=== PATIENT | female | born 1965 | race Caucasian/White ===

== ENCOUNTER 2023-04-01 14:41 | Inpatient (IN) | payer OTHER ==
[2023-04-01 15:47] VITALS: BMI 31.2
[2023-04-01] MEDS ORDERED: BENZOCAINE/MENTHOL (CHLORASEPTIC ) LOZENGE MM PRN (19:20)
[2023-04-01] MEDS ORDERED: MAG HYDROX/AL HYDROX/SIMETH 30 ML UNIT-DOSE CUP PO PRN (19:20)
[2023-04-01] MEDS ORDERED: ONDANSETRON *ODT* 4 MG TABLET SL PRN (19:20)
[2023-04-01] MEDS ORDERED: LOPERAMIDE HCL 2 MG CAPSULE PO PRN (19:20)
[2023-04-01] MEDS ORDERED: diazePAM 5 MG TABLET PO PRN (19:20)
[2023-04-01] MEDS ORDERED: BISMUTH SUBSALICYLATE 524 MG/30 ML PO PRN (19:20)
[2023-04-01] MEDS ORDERED: NICOTINE POLACRILEX 2 MG GUM BUC PRN (19:20)
[2023-04-01] MEDS ORDERED: POLYETHYLENE GLYCOL (HEALTHYLAX) 3350 17 GM PACKET PO PRN (19:20)
[2023-04-01] MEDS ORDERED: IBUPROFEN 400 MG TABLET (FP) PO PRN (19:20)
[2023-04-01] MEDS ORDERED: guaiFENesin 600 MG TABLET.ER (FP) PO PRN (19:20)
[2023-04-01] MEDS ORDERED: NALOXONE HCL (KLOXXADO) 8 MG SPRAY NS PRN (19:20)
[2023-04-01] MEDS ORDERED: NALOXONE HCL 0.4 MG/ML VIAL IM PRN (19:20)
[2023-04-01] MEDS ORDERED: IBUPROFEN 600 MG TABLET (FP) PO PRN (19:20)
[2023-04-01] MEDS ORDERED: DICYCLOMINE HCL 10 MG CAPSULE PO PRN (19:20)
[2023-04-01] MEDS ORDERED: MAGNESIUM HYDROX 2400MG/30ML ORAL SUSPENSION 30 ML CUP PO PRN (19:20)
[2023-04-01] MEDS ORDERED: BENZONATATE 200 MG CAPSULE PO PRN (19:20)
[2023-04-01] MEDS ORDERED: cloNIDine HCL 0.1 MG TABLET PO ONE (19:41)
[2023-04-01] MEDS ORDERED: diazePAM 5 MG TABLET PO ONE (19:42)
[2023-04-01] MEDS: MELATONIN 5 MG TABLETS PO SCH (22:18)
[2023-04-01] MEDS: THIAMINE HCL 100 MG TABLET (FP) PO SCH (22:18)
[2023-04-01] MEDS: diazePAM 5 MG TABLET PO SCH (22:18)
[2023-04-02] MEDS: diazePAM 5 MG TABLET PO SCH ×4 (05:46→22:25)
[2023-04-02] MEDS: METHOCARBAMOL 500 MG TABLET PO PRN (06:01)
[2023-04-02] MEDS: hydrOXYzine PAMOATE 25 MG CAPSULE (FP) PO PRN ×2 (06:01→10:20)
[2023-04-02] MEDS ORDERED: ALBUTEROL SO4 HFA INHALER IH PRN ×2 (08:50→13:21)
[2023-04-02] MEDS ORDERED: cloNIDine HCL 0.1 MG TABLET PO PRN (08:51)
[2023-04-02] MEDS ORDERED: methaDONE HCL 10 MG TABLET PO SCH (09:00)
[2023-04-02] MEDS: PRENATAL VITAMINS W/ FOLIC ACID TABLET (FP) PO SCH (10:20)
[2023-04-02 11:57] LABS: POTASSIUM 4.6 mmol/L (3.5-5.1)
[2023-04-02 12:01] LABS: HEMATOCRIT 40.6 % (32.4-45.2); HEMOGLOBIN 14.3 GM/dL (10.7-15.3); MCHC 35.3 g/dl (32.0-36.0); MEAN CELL VOLUME 90.8 fl (80-96); MEAN PLT VOLUME 9.4 fl (7.5-11.1); PLATELET COUNT 353 10^3/uL (134-434); RBC 4.47 M/mm3 (3.60-5.2); RDW 12.6 % (11.6-15.6); WHITE BLOOD COUNT 10.9 K/mm3 (4.0-10.0)
[2023-04-02 12:04] LABS: ALBUMIN 3.5 g/dl (3.4-5.0); CALCIUM 9.5 mg/dL (8.5-10.1)
[2023-04-02 12:05] LABS: BLOOD UREA NITROGEN 13.6 mg/dL (7-18)
[2023-04-02 12:07] LABS: CREATININE 0.7 mg/dL (0.55-1.3)
[2023-04-02 12:09] LABS: BILIRUBIN,TOTAL 0.4 mg/dL (0.2-1)
[2023-04-02] MEDS: amLODIPine BESYLATE 5 MG TABLET (FP) PO SCH (13:13)
[2023-04-02] MEDS: MELATONIN 5 MG TABLETS PO SCH (22:25)
[2023-04-02] MEDS: THIAMINE HCL 100 MG TABLET (FP) PO SCH (22:25)
[2023-04-03] MEDS: diazePAM 5 MG TABLET PO SCH ×3 (05:23→22:14)
[2023-04-03] MEDS: METHOCARBAMOL 500 MG TABLET PO PRN (10:16)
[2023-04-03] MEDS: PRENATAL VITAMINS W/ FOLIC ACID TABLET (FP) PO SCH (10:16)
[2023-04-03] MEDS: hydrOXYzine PAMOATE 25 MG CAPSULE (FP) PO PRN (10:16)
[2023-04-03] MEDS: ACETAMINOPHEN 325 MG TABLET (FP) PO PRN (10:17)
[2023-04-03] MEDS: amLODIPine BESYLATE 5 MG TABLET (FP) PO SCH (10:17)
[2023-04-03] MEDS: THIAMINE HCL 100 MG TABLET (FP) PO SCH (22:14)
[2023-04-03] MEDS: MELATONIN 5 MG TABLETS PO SCH (22:14)
[2023-04-04] MEDS: diazePAM 5 MG TABLET PO SCH ×2 (05:31→18:48)
[2023-04-04] MEDS: hydrOXYzine PAMOATE 25 MG CAPSULE (FP) PO PRN ×2 (10:20→21:53)
[2023-04-04] MEDS: METHOCARBAMOL 500 MG TABLET PO PRN ×2 (10:20→21:53)
[2023-04-04] MEDS: LISINOPRIL 10 MG TABLET PO SCH (10:20)
[2023-04-04] MEDS: PRENATAL VITAMINS W/ FOLIC ACID TABLET (FP) PO SCH (10:20)
[2023-04-04] MEDS: ACETAMINOPHEN 325 MG TABLET (FP) PO PRN (10:21)
[2023-04-04] MEDS: MELATONIN 5 MG TABLETS PO SCH (21:52)
[2023-04-04] MEDS: THIAMINE HCL 100 MG TABLET (FP) PO SCH (21:53)
[2023-04-04 22:59] VITALS: RESP 18
[2023-04-05] MEDS ORDERED: diazePAM 5 MG TABLET PO ONE (06:00)
[2023-04-05 09:30] VITALS: BP 149/73; PULSE 67; TEMP 97
[2023-04-05] MEDS: PRENATAL VITAMINS W/ FOLIC ACID TABLET (FP) PO SCH (10:30)
[2023-04-05] MEDS: LISINOPRIL 10 MG TABLET PO SCH (10:30)
== END 2023-04-05 10:36 | disposition home or self-care (01) | DRG 773 ==
LOC: YASAS 14:41 → Y6N 20:28
PROVIDERS: ADMIT Allergy & Immunology; ATTEND Surgery
PROC: HZ2ZZZZ Detoxification Services for Substance Abuse Treatment (ICD-10-PCS; principal; 2023-04-01)
DX: F10.230 Alcohol dependence with withdrawal, uncomplicated (principal); F13.230 Sedative, hypnotic or anxiolytic dependence with withdrawal, uncomplicated; F11.20 Opioid dependence, uncomplicated; F31.9 Bipolar disorder, unspecified; F19.282 Other psychoactive substance dependence with psychoactive substance-induced sleep disorder; F19.24 Other psychoactive substance dependence with psychoactive substance-induced mood disorder; I10 Essential (primary) hypertension; J45.20 Mild intermittent asthma, uncomplicated; M54.50 Low back pain, unspecified; G89.29 Other chronic pain; Z62.810 Personal history of physical and sexual abuse in childhood; Z91.410 Personal history of adult physical and sexual abuse; Z86.19 Personal history of other infectious and parasitic diseases
CPT/HCPCS: 36415; 80053; 85027; 86780; 87635; 93005; 93010